=== PATIENT | female | born 1975 | race African-American/Black ===

== ENCOUNTER 2017-06-23 14:24 | Emergency (ER) | payer BC ==
[~2017-06-23] VITALS: Ht 154.9 cm; Wt 111.1 kg
[2017-06-23] MEDS ORDERED: IV NORMAL SALINE 1000ML BAG 1,000 ML IV SCH (14:44)
[2017-06-23] MEDS ORDERED: ONDANSETRON PF 4 MG/2 ML VIAL. IV ONE (14:45)
[2017-06-23] MEDS ORDERED: 0.9 % SODIUM CHLORIDE 10 ML DISP.SYRIN. IV PRN (14:45)
[2017-06-23] MEDS ORDERED: HYDROmorphone 2 MG/ML VIAL IV/SQ PRN (14:45)
--- NOTE | 2017-06-23 14:51 | PHYS DOC ---
Past Medical History Past Medical History: Anemia, Diabetes-Type II, Hypertension Past Surgical History: Cholecystectomy, Hysterectomy, Other Additional Past Surgical Histo: RIGHT ACHILLES REPAIR Alcohol Use: None Drug Use: None Adult General Chief Complaint Chief Complaint: FLANK PAIN HPI HPI Patient is a pleasant 42-year-old female with history of diabetes and hypertension who complains of 9 years of intermittent flank pain on the left. She comes in today for the last 2-3 days the flank pain is taken a change in character and that is more severe localized and constant. She is taking Naprosyn today and attempt to treat the pain which has not improved. She has no nausea, no vomiting, no diarrhea, no UTI symptoms only a slight pinkish vaginal discharge has been intermittent for last 6 months. She is presently not having any symptoms at this time. She denies any night sweats, fevers, chills, URI symptoms, chest pain, shortness of breath or other symptoms. The flank pain is only on the left with no radiation to the abdomen. There is no movement to this pain but only increases with pressure or breathing. It also will increase with certain movements. Patient denies any trauma, denies any travel outside the country or other PE risk factors. Review of Systems Review of Systems Constitutional: Denies fever or chills Eyes: Denies change in visual acuity, redness, or eye pain HENT: Denies nasal congestion or sore throat Respiratory: Denies cough or shortness of breath Cardiovascular: No additional information not addressed in HPI GI: She complains from left flank pain with no nausea, vomiting bloody stools diarrhea or mucus. She has had some intermittent constipation. : Denies dysuria or hematuria he does complain of a mild pink frothy discharge is intermittent. Nothing at this point. Musculoskeletal: Denies back pain or joint pain Integument: Denies rash or skin lesions Neurologic: Denies headache, focal weakness or sensory changes Endocrine: Denies polyuria or polydipsia Current Medications Current Medications Current Medications Medications (Trade) Dose Ordered Sig/Yvon Start Time Stop Time Status Last Admin Dose Admin Ceftriaxone Sodium 50 ml @ 100 mls/hr 1X ONCE 06/23/17 16:15 06/23/17 16:44 DC 06/23/17 16:48 100 MLS/HR Hydromorphone HCl (Dilaudid) 1 mg PRN Q15MIN PRN 06/23/17 14:45 06/24/17 14:44 06/23/17 15:37 1 MG Ondansetron HCl (Zofran) 4 mg 1X ONCE 06/23/17 14:45 06/23/17 14:48 DC 06/23/17 15:38 4 MG Sodium Chloride (Normal Saline Flush) 10 ml QSHIFT PRN 06/23/17 14:45 Allergies Allergies Allergies Coded Allergies Type Severity Reaction Last Updated Verified No Known Drug Allergies 01/23/16 No Physical Exam Physical Exam Vital signs recorded on the chart patient noted to be hypertensive. Constitutional: Well developed, well nourished, no acute distress, non-toxic appearance. [] HENT: Normocephalic, atraumatic, bilateral external ears normal, oropharynx moist, no oral exudates, nose normal. [] Eyes: PERRLA, EOMI, conjunctiva normal, no discharge. [] Neck: Normal range of motion, no tenderness, supple, no stridor. [] Cardiovascular:Heart rate regular rhythm, no murmur [] Lungs & Thorax: Bilateral breath sounds clear to auscultation [] Abdomen: Bowel sounds normal, soft, ration is tenderness to palpation over the left flank with no obvious signs of trauma, no Gonzalez Panda sign, no guarding rebound or organomegaly. Patient has negative Blunt Panda sign no Carver's or McBurney's point tenderness to palpation. Skin: Warm, dry, no erythema, no rash. [] Back: No tenderness, no CVA tenderness. [] Extremities: No tenderness, no cyanosis, no clubbing, ROM intact, no edema. [] Neurologic: Alert and oriented X 3, normal motor function Repeat exam at 4:30 PM Abdomen soft nontender no rebound or guarding. No psoas or obturator signs. Normal active bowel sounds. Patient does not present with any signs or symptoms of be consistent with an acute surgical abdomen. Current Patient Data Vital Signs Vital Signs Date Time Temp Pulse Resp B/P (MAP) Pulse Ox O2 Delivery O2 Flow Rate FiO2 06/23/17 14:38 98.4 115 20 137/88 (104) 97 Room Air 98.4 Lab Values Laboratory Tests Test 06/23/17 14:45 06/23/17 15:23 06/23/17 15:25 Urine Collection Type Unknown Urine Color Yellow Urine Clarity Clear Urine pH 5.5 Urine Specific [place] 1.015 Urine Protein Negative mg/dL (NEG-TRACE) Urine Glucose (UA) Negative mg/dL (NEG) Urine Ketones (Stick) Negative mg/dL (NEG) Urine Blood Negative (NEG) Urine Nitrite Negative (NEG) Urine Bilirubin Negative (NEG) Urine Urobilinogen Dipstick 0.2 mg/dL (0.2 mg/dL) Urine Leukocyte Esterase Moderate (NEG) Urine RBC 0 /HPF (0-2) Urine WBC 11-20 /HPF (0-4) Urine Squamous Epithelial Cells Few /LPF Urine Bacteria 0 /HPF (0-FEW) Urine Mucus Mod /LPF POC Troponin I 0.00 ng/ml (<0.08) White Blood Count 9.1 x10^3/uL (4.0-11.0) Red Blood Count 4.99 x10^6/uL (3.50-5.40) Hemoglobin 12.9 g/dL (12.0-15.5) Hematocrit 39.2 % (36.0-47.0) Mean Corpuscular Volume 79 fL (79-100) Mean Corpuscular Hemoglobin 26 pg (25-35) Mean Corpuscular Hemoglobin Concent 33 g/dL (31-37) Red Cell Distribution Width 16.3 % (11.5-14.5) H Platelet Count 448 x10^3/uL (140-400) H Neutrophils (%) (Auto) 50 % (31-73) Lymphocytes (%) (Auto) 39 % (24-48) Monocytes (%) (Auto) 7 % (0-9) Eosinophils (%) (Auto) 4 % (0-3) H Basophils (%) (Auto) 1 % (0-3) Neutrophils # (Auto) 4.5 x10^3uL (1.8-7.7) Lymphocytes # (Auto) 3.5 x10^3/uL (1.0-4.8) Monocytes # (Auto) 0.6 x10^3/uL (0.0-1.1) Eosinophils # (Auto) 0.4 x10^3/uL (0.0-0.7) Basophils # (Auto) 0.1 x10^3/uL (0.0-0.2) Sodium Level 141 mmol/L (136-145) Potassium Level 3.6 mmol/L (3.5-5.1) Chloride Level 101 mmol/L (98-107) Carbon Dioxide Level 31 mmol/L (21-32) Anion Gap 9 (6-14) Blood Urea Nitrogen 14 mg/dL (7-20) Creatinine 1.0 mg/dL (0.6-1.0) Estimated GFR (Cockcroft-Gault) 73.6 BUN/Creatinine Ratio 14 (6-20) Glucose Level 119 mg/dL (70-99) H Calcium Level 9.1 mg/dL (8.5-10.1) Total Bilirubin 0.4 mg/dL (0.2-1.0) Aspartate Amino Transferase (AST) 16 U/L (15-37) Alanine Aminotransferase (ALT) 30 U/L (14-59) Alkaline Phosphatase 97 U/L (46-116) Total Protein 7.3 g/dL (6.4-8.2) Albumin 4.0 g/dL (3.4-5.0) Albumin/Globulin Ratio 1.2 (1.0-1.7) Lipase 170 U/L (73-393) Laboratory Tests 06/23/17 15:25 Laboratory Tests 06/23/17 15:25 EKG EKG [] Radiology/Procedures Radiology/Procedures [] Course & Med Decision Making Course & Med Decision Making Pertinent Labs and Imaging studies reviewed. (See chart for details) []Patient presents with left flank pain ongoing for approximately 9 years. Acutely worsened last 2 days patient's complaint could possibly be explained by differential diagnosis that includes but not limited by, kidney stone, UTI, pyonephritis, renal abscess, renal cell carcinoma, flank trauma to include rib fracture, vertebral body fracture, epidural abscess, zoster, lower lung PE, lower lobe pneumonia, splenic injury, peptic ulcer disease, pancreatitis, or acute coronary event. She will have a troponin, EKG, CT scan and possibly without contrast, urinalysis completed as well as CBC and CMP. Her care be turned over to the oncoming physician at 3 PM. Assessment and plan This is a 40-year-old female who presents here today complaining of flank pain and pinkish discharge when she wipes herself after urinating. Patient's ER workup is been unremarkable except for what appears to be a urinary tract infection her urine and her CT scan revealing inflammation around her bladder. I discussed results with the patient with her that her symptoms may be related to a urinary tract infection. Patient will be treated with IV Rocephin times one dose and will be discharged home on Keflex 500 mg 3 times a day 10 days and to be reevaluated by primary care physician if her symptoms persist. Patient is clinically and hemodynamically stable for discharged home. Dragon Disclaimer Dragon Disclaimer This electronic medical record was generated, in whole or in part, using a voice recognition dictation system. Departure Departure Impression: Primary Impression: Abdominal pain Additional Impression: Cystitis Disposition: , SELF-CARE Condition: IMPROVED Referrals: KENNEDI WEBSTER MD (PCP) Patient Instructions: Urinary Tract Infection Scripts Tramadol Hcl (ULTRAM) 50 Mg Tablet 1 TAB PO Q6HRS, #14 TAB Prov: PHILIPP WHITE MD 06/23/17 Cephalexin (KEFLEX) 500 Mg Capsule 500 MG PO TID for 10 Days, #30 CAP Prov: PHILIPP WHITE MD 06/23/17 Problem Qualifiers ZAIN LINDO MD Jun 23, 2017 14:51 PHILIPP WHITE MD Jun 23, 2017 17:08
[2017-06-23 14:55] LABS: BILIRUBIN,URINE NEGATIVE (NEG); GLUCOSE,URINE NEGATIVE (NEG); NITRITE,URINE NEGATIVE (NEG); PH,URINE 5.5; PROTEIN,URINE NEGATIVE (NEG-TRACE); UROBILINOGEN,URINE 0.2 mg/dL (0.2 mg/dL)
[2017-06-23 15:42] LABS: BACTERIA,URINE 0 /HPF (0-FEW); RBC,URINE 0 /HPF (0-2); SQUAMOUS EPITHELIAL CELL,UR FEW /LPF
[2017-06-23 15:50] LABS: BASO # 0.1 x10^3/uL (0.0-0.2); BASO % 1 % (0-3); CALCIUM 9.1 mg/dL (8.5-10.1); EOS % 4 % (0-3); GFR 73.6; HEMATOCRIT 39.2 % (36.0-47.0); HEMOGLOBIN 12.9 g/dL (12.0-15.5); LYMPH # 3.5 x10^3/uL (1.0-4.8); LYMPH % 39 % (24-48); MEAN CORPUSCULAR HEMOGLOBIN 26 pg (25-35); MEAN CORPUSCULAR HGB CONC 33 g/dL (31-37); MEAN CORPUSCULAR VOLUME 79 fL (79-100); MONO % 7 % (0-9); NEUT % 50 % (31-73); PLATELET COUNT 448 x10^3/uL (140-400); POTASSIUM 3.6 mmol/L (3.5-5.1); RED BLOOD COUNT 4.99 x10^6/uL (3.50-5.40); RED CELL DISTRIBUTION WIDTH 16.3 % (11.5-14.5); WHITE BLOOD COUNT 9.1 x10^3/uL (4.0-11.0)
[2017-06-23 15:57] LABS: ALBUMIN/GLOBULIN RATIO 1.2 (1.0-1.7); TOTAL BILIRUBIN 0.4 mg/dL (0.2-1.0); TOTAL PROTEIN 7.3 g/dL (6.4-8.2)
--- NOTE | 2017-06-23 15:59 | RAD ---
Examination: CT of the abdomen pelvis without contrast HISTORY: History of left-sided flank pain, hematuria COMPARISON: None available. TECHNIQUE: Axial CT images of the abdomen pelvis were performed without contrast. Coronal and sagittal reformats are performed Exposure: One or more of the following individualized dose reduction techniques were utilized for this examination: 1. Automated exposure control 2. Adjustment of the mA and/or kV according to patient size 3. Use of iterative reconstruction technique. Findings: The visualized bibasilar lungs grossly appears unremarkable. No evidence of free air identified in the abdomen. The evaluation of the solid organs is limited due to lack of IV contrast. The evaluation of bowel is limited due to lack of oral contrast. The visualized noncontrasted liver, spleen, adrenals grossly appears unremarkable. Cholecystectomy clips identified. The stomach is mildly distended. The visualized pancreas grossly appears unremarkable. The small bowel is nondilated. Feces and gas noted throughout the colon. The appendix is normal. No evidence of intrarenal collecting system calculi or hydronephrosis. The left ovary appears enlarged with a cystic structure in the left ovary measuring 3.5 cm. Small amount of free fluid identified in the pelvis. Urinary bladder is mildly distended. Minimal fat stranding identified about the urinary bladder. No evidence of lytic bony destructive lesion. IMPRESSION: 1. No evidence of intrarenal collecting system calculi or hydronephrosis. 2. Minimal fat stranding identified about the urinary bladder. Correlate for cystitis. 3. 3.5 cm cystic density identified in the left ovary could be a cyst or cystic lesion. Recommend follow-up ultrasound for further evaluation. Electronically signed by: Josh Cho MD (06/23/2017 3:56 PM) [id number]
[2017-06-23] MEDS ORDERED: TRAM-48 PO (17:08)
[2017-06-23] MEDS ORDERED: CEPH-264 PO (17:08)
[2017-06-23 17:30] VITALS: BP 140/64
--- NOTE | 2017-06-23 17:32 | EKG ---
[address] [place] [id number] Test Date: 2017-06-23 Test Time: 15:03:52 Pat Name: YUSEF KRAMER Department: Room: Gender: F Neonatologist: : 1975 Requested By: ZAIN LINDO Order Number: [id number] Reading MD: Measurements Intervals [place] Rate: 108 P: 59 [place]: 130 QRS: 7 QRSD: 80 T: 26 QT: 332 QTc: 449 Interpretive Statements SINUS TACHYCARDIA QRS(T) CONTOUR ABNORMALITY CANNOT RULE OUT ANTEROSEPTAL MYOCARDIAL DAMAGE RI6.01 Unconfirmed report No previous ECG available for comparison
== END 2017-06-23 17:57 | disposition home or self-care (01) ==
LOC: ER 14:24
DX: N30.90 Cystitis, unspecified without hematuria (principal); E11.9 Type 2 diabetes mellitus without complications; I10 Essential (primary) hypertension; Z90.49 Acquired absence of other specified parts of digestive tract; Z90.710 Acquired absence of both cervix and uterus
CPT/HCPCS: 36415; 74176; 80053; 81001; 83690; 84484; 85025; 87086; 93005; 96365; 96375; 99285; J0690; J1170; J2405; J7030